=== PATIENT | male | born 1980 | race African-American/Black ===

== ENCOUNTER 2019-02-21 08:19 | Emergency (ER) | payer OTHER ==
[~2019-02-21] VITALS: Ht 182.9 cm; Wt 70.0 kg
[~2019-02-21 08:19] MED LIST: IBUP-1542 PO
[2019-02-21 08:24] VITALS: BP 139/94; PULSE 62; RESP 18; Ht 182.9 cm; Wt 70.0 kg
== END 2019-02-21 10:01 | disposition home or self-care (01) ==
LOC: E/R 08:19
DX: S63.502A Unspecified sprain of left wrist, initial encounter (principal); F19.920 Other psychoactive substance use, unspecified with intoxication, uncomplicated; X58.XXXA Exposure to other specified factors, initial encounter; Y92.9 Unspecified place or not applicable